=== PATIENT | female | born 1930 | race Caucasian/White ===

== ENCOUNTER 2016-09-10 11:16 | Emergency (ER) | payer OTHER, BC ==
--- NOTE | 2016-09-10 13:03 | DIAGNOSTIC IMAGING REPORT ---
PROCEDURE: XR ABDOMEN 1 VIEW UPRIGHT INDICATION: ABDOMINAL PAIN TECHNIQUE: AP upright view. COMPARISON: None. FINDINGS: Marked levoscoliosis and degenerative changes of the lumbar spine. Bowel pattern is normal. No evidence of free air. Soft tissues soft tissues are normal. IMPRESSION: 1. Marked levoscoliosis and degenerative changes of the lumbar spine. 2. Otherwise negative abdomen.
--- NOTE | 2016-09-10 15:44 | ED ORDER SUMMARY ---
..... Patient: GUILLE ESQUEDA OrderSheet [facility] VisitID: [id number] [address] [place] [address] 86y, F Registration Date/Time: 09/10/2016 ORDER SHEET Weight: 57.6 kg Allergies: Penicillins, Sulfa Antibiotics, GENERAL ORDERS: Abdomen 1V Upright Urgent (12:22 09/10/2016 Allyson FAIRBANKS) (Ack 12:23 Hilda) (12:55 Gregory) - (enemas until clear.) (13:09 09/10/2016 Allyson FAIRBANKS) (13:15 Mehdi Martínez.N.) UA-Culture if indicated Urgent (13:52 09/10/2016 Mehdi Martínez.Jb verbal order read back to Allyson FAIRBANKS) (13:52 Mehdi Martínez.N.) MEDICATION ORDERS: IV FLUIDS: ORDER SHEET NOTES: [Electronically signed by Brennan Dorsey MD (16:32 09/10/2016)] [Electronically signed by Pepe Raya R.N. (03:32 09/12/2016)] [Electronically locked/signed by Pepe Raya R.N. (03:32 09/12/2016)]
--- NOTE | 2016-09-10 15:44 | ED CLINICAL REPORT ---
Clinical Report - Physicians/Mid Levels [facility] [address] [place] [address] 09/10/2016 11:23 Patient: GUILLE ESQUEDA Time Seen: 12:04 Sep 10 2016. Arrived- By private vehicle. Historian- patient. CPT: ER phys charges level 4 (#[id number]). HISTORY OF PRESENT ILLNESS Chief Complaint: ABDOMINAL PAIN. At its maximum, severity described as moderate. When seen in the E.D., severity described as mild. Modifying factors- worsened by movement and food. Not relieved by anything. This started about 5 days [employer]; Historian: patient. Accompanied by spouse. Primary physician (Jhon). ( Abdominal Cramping, which pt attributes to possible constipation.). Onset. (about 5). She has had abdominal pain. and is still present. It is described as cramping and it is described as located in the periumbilical area. No nausea or vomiting. She has had loss of appetite and mild diarrhea. Similar symptoms previously: Diagnosis: constipation. Recent medical care: The patient was seen recently in the office (yesterday). Evaluation/treatment- go home and do fleets enemas. Diagnosis: constipation. REVIEW OF SYSTEMS The patient has had constipation. No black stools, hematemesis, difficulty with urination, pain with urination or urinary frequency. No fever, sore throat, chest pain, difficulty breathing or cough. No joint pain, skin rash, chills or back pain. All systems otherwise negative, except as recorded above. PAST HISTORY Hypertension. tremor. SOCIAL HISTORY Former smoker, end date 1966. No alcohol use or drug use. ADDITIONAL NOTES The nursing notes have been reviewed. PHYSICAL EXAM Vital Signs: 09/10/2016 11:39 BP: 141/92. HR: 93. RR: 16. O2 saturation: 97%. Temp: 97.6 F. Pain level now: 0/10. Appearance: Alert. Patient in mild distress. Eyes: Eyes normal inspection. ENT: Pharynx normal. CVS: Normal heart rate and rhythm. Respiratory: No respiratory distress. Abdomen: Soft. Mild tenderness in the periumbilical area. Abnormal bowel sounds: diminished. Skin: Skin warm. Normal skin color. Neuro: Oriented X 3. LABS, X-RAYS, AND EKG KUB: (moderate stool.). Views: erect AP. Technique: good. The X-rays were independently viewed by me and interpreted contemporaneously by me. Prior films were not available for comparison. Laboratory Tests: UA-Culture if indicated: (AYZMIN: 09/10/2016 13:30) ( MsgRcvd 09/10/2016 14:25) Final results Test Result Flag Units (Reference) URINE COLOR YELLOW URINE APPEARANCE HAZY URINE GLUCOSE NEGATIVE (NEGATIVE) URINE BILIRUBIN NEGATIVE (NEGATIVE) URINE KETONE NEGATIVE (NEGATIVE) URINE SPECIFIC GRAVITY <= 1.005 L (1.010-1.030) URINE PH 6.0 (5.0-8.0) URINE PROTEIN NEGATIVE (NEGATIVE) URINE UROBILINOGEN 0.2 EU/dL (0.2-1.0) URINE NITRITE NEGATIVE (NEGATIVE) URINE BLOOD NEGATIVE (NEGATIVE) URINE LEUK ESTERASE POSITIVE (NEGATIVE) URINE RBC NONE SEEN rbc/hpf (0-1) URINE WBC 1-3 wbc/hpf (0-1) URINE EPITHELIAL CELLS 5-10 EPI/hpf (0-5) URINE BACTERIA NONE SEEN (NONE SEEN) URINE COMMENT CULTURE INDICATED FEW TRANSITIONAL EPITHELIAL CELLSURINE CULTURES ARE SET-UP BASED ON THE FOLLOWING CRITERIA:POSITIVE NITRITEPOSITIVE LEUKOCYTE ESTERASEGREATER THAN 10 WHITE BLOOD CELLSMODERATE (2+) OR GREATER BACTERIA . PROGRESS AND PROCEDURES Course of Care: Good results from enemas. Patient is stable. Symptoms better. Patient/family counseled. Disposition: Discharged. Condition: stable. CLINICAL IMPRESSION Obstipation. INSTRUCTIONS Drink plenty of fluids. (drink one bottle of magnesium citrate at home.). Warnings: Further evaluation is necessary. GENERAL WARNINGS: Return or contact your physician immediately if your condition worsens or changes unexpectedly, if not improving as expected, or if other problems arise. Your Current Medications: CONTINUE TAKING THE FOLLOWING MEDICATIONS: Calcium + D Oral. Lisinopril Oral : 20 mg daily. Neurontin Oral : 300 mg daily. Omeprazole Oral : 20 mg daily. Tylenol Oral : 250 mg daily. Valium Oral : 5 mg daily. Follow-up: Follow up with your doctor in one week. Call for an appointment. Understanding of the discharge instructions verbalized by patient and family. Discharge instructions reviewed with and understanding was verbalized by spouse. (Electronically signed by Brennan Dorsey MD 09/10/2016 16:32)
--- NOTE | 2016-09-10 15:44 | ED NURSING NOTES ---
Clinical Report - Nurses [facility] [address] [place] [address] 09/10/2016 11:23 [id number] Triage time 11:35 Sep 10 2016. Acuity: LEVEL 3. Chief Complaint: ABDOMINAL PAIN. Alert. TELMA COMA SCORE: [place] Coma Scale: 15- eyes open spontaneously (4); best verbal response- oriented x 4 (5); best motor response- obeys commands (6). --11:55 Pepe Erickson R.N. 11:39 09/10/16. BP: 141/92. HR: 93 (regular). RR: 16. O2 saturation: 97% on room air. Temp: 97.6 F. Pain level now: 0/10. --11:55 Pepe Erickson R.N. Weight: 57.6 kg. Height/Length: 59 inches Per Patient. BMI: 25.7. --11:41 Pepe Erickson R.N. Medications Lisinopril Oral 20 mg, daily. Valium Oral 5 mg, daily. --11:47 Pepe Erickson R.N. Omeprazole Oral 20 mg, daily. --11:47 Pepe Erickson R.N. Neurontin Oral 300 mg, daily. --11:48 Pepe Erickson R.N. Tylenol Oral 250 mg, daily. --11:49 Pepe Erickson R.N. Calcium + D Oral. --11:49 Pepe Erickson R.N. Medication/allergy information source: the patient. --11:55 Pepe Erickson R.N. Allergies Penicillins. Definite Moderate(rash) Sulfa Antibiotics. Definite Moderate (Uncertain--50 years ago) --11:47 Pepe Erickson R.N. The following entry was struck and corrected by Pepe Erickson R.N., 11:51 (09/10/16) Reason for correction - other(correction). <<STRICKEN ENTRY-- Sulfa Antibiotics. --11:47 Pepe Erickson R.N. --END STRIKE>> The following entry was struck and corrected by Pepe Erickson R.N., 11:50 (09/10/16) Reason for correction - other(correction). <<STRICKEN ENTRY-- Penicillins. --11:47 Pepe Erickson R.N. --END STRIKE>>. History Arrived by private vehicle. Historian: patient. Accompanied by spouse. Primary physician (Jhon). ( Abdominal Cramping, which pt attributes to possible constipation.). Onset. (about 5). She has had abdominal pain. 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 PAST MEDICAL HX: Immunizations: up-to-date. SURGERY HX: No history of previous surgery. SOCIAL HX: Former smoker, end date 1939. No alcohol use or drug use. No recent travel. No infectious disease exposure. No known contact with a sick individual. ABUSE ASSESSMENT: No report of abuse. FALL RISK ASSESSMENT: Fall risk assessment completed. No fall risk identified. NUTRITIONAL RISK ASSESSMENT: The nutritional risk assessment revealed no deficiencies. FUNCTIONAL ASSESSMENT: Functional assessment: no impairments noted. LEARNING NEEDS ASSESSMENT: The learning needs assessment revealed no barriers. SKIN INTEGRITY ASSESSMENT: Skin integrity risk assessment completed. No skin integrity risk identified. --11:55 Pepe Erickson R.N. Interventions ID band on patient. To treatment room. --11:55 Pepe Erickson R.N. PHYSICAL ASSESSMENT Ambulatory to room. GENERAL / NEURO / PSYCH: Alert. Oriented X 4. HEENT: Mucous membranes are pink. RESPIRATORY: Respirations not labored. Breath sounds within normal limits. CVS: Normal sinus rhythm noted. GI / : Abdomen soft. Abdominal tenderness. Bowel sounds within normal limits. SKIN: Skin is warm and dry. --11:56 Pepe Erickson R.N. NURSING PROGRESS NOTES Patient gowned. Reassurance given. Call light placed in reach. Side rails up x 2. Bed placed in lowest position. Brakes of bed on. Patient ready for evaluation- chart flagged and ED physician notified. --11:56 Pepe Erickson R.N. 13:45 09/10/16. Patient ID band checked for patient name, birthdate and medical record number: patient confirmed. Instructions provided to collect clean catch urine and patient verbalized understanding. Clean catch urine collected with return of yellow-colored clear urine; odor is normal; sample sent to lab for urinalysis and culture. Specimen labeled in the presence of the patient. --13:52 Pepe Erickson R.N. 13:50 09/10/16. ( Fleets Mineral Oil Enema given to pt.). --13:53 Pepe Erickson R.N. 14:05. ( Fleets Saline Enema given to pt). --15:45 Pepe Erickson R.N. 14:50. ( Pt up to [facility] passing stool/stool fragments.). --15:46 Pepe Erickson R.N. 15:10. ( Murj-[id number]-Aochxnfu Enema). --15:48 Pepe Erickson R.N. DISPOSITION / DISCHARGE Departure time: 16:00 Sep 10 2016. Condition at departure: improved. No learning barriers present. Discharge instructions provided and reviewed with the patient. Reviewed warnings. Reviewed medication(s). Treatments reviewed. Reviewed referrals. Patient and spouse verbalized understanding. Written instructions provided in Chinese. The patient was discharged home and accompanied by spouse. She left the Emergency Department ambulatory and via private vehicle. Spouse driving. --16:00 Veena Brown R.N. 15:58 09/10/16. BP: 102/73. HR: 94. RR: 18. O2 saturation: 100%. Temp: 98.6 F. Pain level now 2/10. --16:00 Veena Brown R.N. Locked/Released at 09/12/2016 3:32 by Pepe Raya R.N.
--- NOTE | 2016-09-10 15:44 | ED ORDER SUMMARY ---
..... Patient: GUILLE ESQUEDA OrderSheet [facility] VisitID: [id number] [address] [place] [address] 86y, F Registration Date/Time: 09/10/2016 ORDER SHEET Weight: 57.6 kg Allergies: Penicillins, Sulfa Antibiotics, GENERAL ORDERS: Abdomen 1V Upright Urgent (12:22 09/10/2016 Allyson FAIRBANKS) (Ack 12:23 Hilda) (12:55 Gregory) - (enemas until clear.) (13:09 09/10/2016 Allyson FAIRBANKS) (13:15 Mehdi Martínez.N.) UA-Culture if indicated Urgent (13:52 09/10/2016 Mehdi Martínez.Jb verbal order read back to Allyson FAIRBANKS) (13:52 Mehdi Martínez.N.) MEDICATION ORDERS: IV FLUIDS: ORDER SHEET NOTES: [Electronically signed by Brennan Dorsey MD (16:32 09/10/2016)] [Electronically signed by Pepe Raya R.N. (03:32 09/12/2016)] [Electronically locked/signed by Pepe Raya R.N. (03:32 09/12/2016)]
--- NOTE | 2016-09-10 15:44 | ED CLINICAL REPORT ---
Clinical Report - Physicians/Mid Levels [facility] [address] [place] [address] 09/10/2016 11:23 Patient: GUILLE ESQUEDA Time Seen: 12:04 Sep 10 2016. Arrived- By private vehicle. Historian- patient. CPT: ER phys charges level 4 (#[id number]). HISTORY OF PRESENT ILLNESS Chief Complaint: ABDOMINAL PAIN. At its maximum, severity described as moderate. When seen in the E.D., severity described as mild. Modifying factors- worsened by movement and food. Not relieved by anything. This started about 5 days [employer]; Historian: patient. Accompanied by spouse. Primary physician (Jhon). ( Abdominal Cramping, which pt attributes to possible constipation.). Onset. (about 5). She has had abdominal pain. and is still present. It is described as cramping and it is described as located in the periumbilical area. No nausea or vomiting. She has had loss of appetite and mild diarrhea. Similar symptoms previously: Diagnosis: constipation. Recent medical care: The patient was seen recently in the office (yesterday). Evaluation/treatment- go home and do fleets enemas. Diagnosis: constipation. REVIEW OF SYSTEMS The patient has had constipation. No black stools, hematemesis, difficulty with urination, pain with urination or urinary frequency. No fever, sore throat, chest pain, difficulty breathing or cough. No joint pain, skin rash, chills or back pain. All systems otherwise negative, except as recorded above. PAST HISTORY Hypertension. tremor. SOCIAL HISTORY Former smoker, end date 1966. No alcohol use or drug use. ADDITIONAL NOTES The nursing notes have been reviewed. PHYSICAL EXAM Vital Signs: 09/10/2016 11:39 BP: 141/92. HR: 93. RR: 16. O2 saturation: 97%. Temp: 97.6 F. Pain level now: 0/10. Appearance: Alert. Patient in mild distress. Eyes: Eyes normal inspection. ENT: Pharynx normal. CVS: Normal heart rate and rhythm. Respiratory: No respiratory distress. Abdomen: Soft. Mild tenderness in the periumbilical area. Abnormal bowel sounds: diminished. Skin: Skin warm. Normal skin color. Neuro: Oriented X 3. LABS, X-RAYS, AND EKG KUB: (moderate stool.). Views: erect AP. Technique: good. The X-rays were independently viewed by me and interpreted contemporaneously by me. Prior films were not available for comparison. Laboratory Tests: UA-Culture if indicated: (YAZMIN: 09/10/2016 13:30) ( MsgRcvd 09/10/2016 14:25) Final results Test Result Flag Units (Reference) URINE COLOR YELLOW URINE APPEARANCE HAZY URINE GLUCOSE NEGATIVE (NEGATIVE) URINE BILIRUBIN NEGATIVE (NEGATIVE) URINE KETONE NEGATIVE (NEGATIVE) URINE SPECIFIC GRAVITY <= 1.005 L (1.010-1.030) URINE PH 6.0 (5.0-8.0) URINE PROTEIN NEGATIVE (NEGATIVE) URINE UROBILINOGEN 0.2 EU/dL (0.2-1.0) URINE NITRITE NEGATIVE (NEGATIVE) URINE BLOOD NEGATIVE (NEGATIVE) URINE LEUK ESTERASE POSITIVE (NEGATIVE) URINE RBC NONE SEEN rbc/hpf (0-1) URINE WBC 1-3 wbc/hpf (0-1) URINE EPITHELIAL CELLS 5-10 EPI/hpf (0-5) URINE BACTERIA NONE SEEN (NONE SEEN) URINE COMMENT CULTURE INDICATED FEW TRANSITIONAL EPITHELIAL CELLSURINE CULTURES ARE SET-UP BASED ON THE FOLLOWING CRITERIA:POSITIVE NITRITEPOSITIVE LEUKOCYTE ESTERASEGREATER THAN 10 WHITE BLOOD CELLSMODERATE (2+) OR GREATER BACTERIA . PROGRESS AND PROCEDURES Course of Care: Good results from enemas. Patient is stable. Symptoms better. Patient/family counseled. Disposition: Discharged. Condition: stable. CLINICAL IMPRESSION Obstipation. INSTRUCTIONS Drink plenty of fluids. (drink one bottle of magnesium citrate at home.). Warnings: Further evaluation is necessary. GENERAL WARNINGS: Return or contact your physician immediately if your condition worsens or changes unexpectedly, if not improving as expected, or if other problems arise. Your Current Medications: CONTINUE TAKING THE FOLLOWING MEDICATIONS: Calcium + D Oral. Lisinopril Oral : 20 mg daily. Neurontin Oral : 300 mg daily. Omeprazole Oral : 20 mg daily. Tylenol Oral : 250 mg daily. Valium Oral : 5 mg daily. Follow-up: Follow up with your doctor in one week. Call for an appointment. Understanding of the discharge instructions verbalized by patient and family. Discharge instructions reviewed with and understanding was verbalized by spouse. (Electronically signed by Brennan Dorsey MD 09/10/2016 16:32)
--- NOTE | 2016-09-10 15:44 | ED NURSING NOTES ---
Clinical Report - Nurses [facility] [address] [place] [address] 09/10/2016 11:23 [id number] Triage time 11:35 Sep 10 2016. Acuity: LEVEL 3. Chief Complaint: ABDOMINAL PAIN. Alert. TELMA COMA SCORE: [place] Coma Scale: 15- eyes open spontaneously (4); best verbal response- oriented x 4 (5); best motor response- obeys commands (6). --11:55 Pepe Erickson R.N. 11:39 09/10/16. BP: 141/92. HR: 93 (regular). RR: 16. O2 saturation: 97% on room air. Temp: 97.6 F. Pain level now: 0/10. --11:55 Pepe Erickson R.N. Weight: 57.6 kg. Height/Length: 59 inches Per Patient. BMI: 25.7. --11:41 Pepe Erickson R.N. Medications Lisinopril Oral 20 mg, daily. Valium Oral 5 mg, daily. --11:47 Pepe Erickson R.N. Omeprazole Oral 20 mg, daily. --11:47 Pepe Erickson R.N. Neurontin Oral 300 mg, daily. --11:48 Pepe Erickson R.N. Tylenol Oral 250 mg, daily. --11:49 Pepe Erickson R.N. Calcium + D Oral. --11:49 Pepe Erickson R.N. Medication/allergy information source: the patient. --11:55 Pepe Erickson R.N. Allergies Penicillins. Definite Moderate(rash) Sulfa Antibiotics. Definite Moderate (Uncertain--50 years ago) --11:47 Pepe Erickson R.N. The following entry was struck and corrected by ePpe Erickson R.N., 11:51 (09/10/16) Reason for correction - other(correction). <<STRICKEN ENTRY-- Sulfa Antibiotics. --11:47 Pepe Erickson R.N. --END STRIKE>> The following entry was struck and corrected by Pepe Erickson R.N., 11:50 (09/10/16) Reason for correction - other(correction). <<STRICKEN ENTRY-- Penicillins. --11:47 Pepe Eirckson R.N. --END STRIKE>>. History Arrived by private vehicle. Historian: patient. Accompanied by spouse. Primary physician (Jhon). ( Abdominal Cramping, which pt attributes to possible constipation.). Onset. (about 5). She has had abdominal pain. 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 PAST MEDICAL HX: Immunizations: up-to-date. SURGERY HX: No history of previous surgery. SOCIAL HX: Former smoker, end date 1939. No alcohol use or drug use. No recent travel. No infectious disease exposure. No known contact with a sick individual. ABUSE ASSESSMENT: No report of abuse. FALL RISK ASSESSMENT: Fall risk assessment completed. No fall risk identified. NUTRITIONAL RISK ASSESSMENT: The nutritional risk assessment revealed no deficiencies. FUNCTIONAL ASSESSMENT: Functional assessment: no impairments noted. LEARNING NEEDS ASSESSMENT: The learning needs assessment revealed no barriers. SKIN INTEGRITY ASSESSMENT: Skin integrity risk assessment completed. No skin integrity risk identified. --11:55 Pepe Erickson R.N. Interventions ID band on patient. To treatment room. --11:55 Pepe Erickson R.N. PHYSICAL ASSESSMENT Ambulatory to room. GENERAL / NEURO / PSYCH: Alert. Oriented X 4. HEENT: Mucous membranes are pink. RESPIRATORY: Respirations not labored. Breath sounds within normal limits. CVS: Normal sinus rhythm noted. GI / : Abdomen soft. Abdominal tenderness. Bowel sounds within normal limits. SKIN: Skin is warm and dry. --11:56 Pepe Erickson R.N. NURSING PROGRESS NOTES Patient gowned. Reassurance given. Call light placed in reach. Side rails up x 2. Bed placed in lowest position. Brakes of bed on. Patient ready for evaluation- chart flagged and ED physician notified. --11:56 Pepe Erickson R.N. 13:45 09/10/16. Patient ID band checked for patient name, birthdate and medical record number: patient confirmed. Instructions provided to collect clean catch urine and patient verbalized understanding. Clean catch urine collected with return of yellow-colored clear urine; odor is normal; sample sent to lab for urinalysis and culture. Specimen labeled in the presence of the patient. --13:52 Pepe Erickson R.N. 13:50 09/10/16. ( Fleets Mineral Oil Enema given to pt.). --13:53 Pepe Erickson R.N. 14:05. ( Fleets Saline Enema given to pt). --15:45 Pepe Erickson R.N. 14:50. ( Pt up to [facility] passing stool/stool fragments.). --15:46 Pepe Erickson R.N. 15:10. ( Tqrh-bou-Ymjipvww Enema). --15:48 Pepe Erickson R.N. DISPOSITION / DISCHARGE Departure time: 16:00 Sep 10 2016. Condition at departure: improved. No learning barriers present. Discharge instructions provided and reviewed with the patient. Reviewed warnings. Reviewed medication(s). Treatments reviewed. Reviewed referrals. Patient and spouse verbalized understanding. Written instructions provided in [place]. The patient was discharged home and accompanied by spouse. She left the Emergency Department ambulatory and via private vehicle. Spouse driving. --16:00 Veena Brown R.N. 15:58 09/10/16. BP: 102/73. HR: 94. RR: 18. O2 saturation: 100%. Temp: 98.6 F. Pain level now 2/10. --16:00 Veena Brown R.N. Locked/Released at 09/12/2016 3:32 by Pepe Raya R.N.
--- NOTE | 2016-09-12 03:32 | ED MED RECONCILIATION SUMMARY ---
Patient: GUILLE ESQUEDA Medication Reconciliation Report [facility] VisitID: [id number] [address] [place] [address] 86y, F Registration Date/Time: 09/10/2016 Weight: 57.6 kg Height/Length: 59 in. BMI: 25.7 ALLERGIES: Penicillins, Sulfa Antibiotics The patient's Home Medications are listed below: CONTINUE TAKING THE FOLLOWING MEDICATIONS: Calcium + D Oral Lisinopril Oral 20 mg, daily Neurontin Oral 300 mg, daily Omeprazole Oral 20 mg, daily Tylenol Oral 250 mg, daily Valium Oral 5 mg, daily The source(s) of the original Home Medication information: patient The following Medications were given to the patient in the Emergency Department: None. The following Medications were prescribed to the patient: None.
--- NOTE | 2016-09-12 03:32 | ED DISCHARGE INSTRUCTIONS ---
Patient: GUILLE ESQUEDA General Instructions [facility] VisitID: [id number] [address] [place] [address] 86y, F Registration Date/Time: 09/10/2016 Obstipation. INSTRUCTIONS Drink plenty of fluids. (drink one bottle of magnesium citrate at home.). Warnings: Further evaluation is necessary. GENERAL WARNINGS: Return or contact your physician immediately if your condition worsens or changes unexpectedly, if not improving as expected, or if other problems arise. Your Current Medications: CONTINUE TAKING THE FOLLOWING MEDICATIONS: Calcium + D Oral. Lisinopril Oral : 20 mg daily. Neurontin Oral : 300 mg daily. Omeprazole Oral : 20 mg daily. Tylenol Oral : 250 mg daily. Valium Oral : 5 mg daily. Follow-up: Follow up with your doctor in one week. Call for an appointment. Understanding of the discharge instructions verbalized by patient and family. Discharge instructions reviewed with and understanding was verbalized by spouse. (Electronically signed by Brennan Dorsey MD 09/10/2016 16:32)
--- NOTE | 2016-09-12 03:32 | ED MAR SUMMARY ---
..... Medication Administration Record [address], [place] [id number] Patient: GUILLE ESQUEDA Visit ID: [id number] 86y, F Weight: 57.6 kg Height/Length: 59 in BMI: 25.7 ALLERGIES: Sulfa Antibiotics, Penicillins
--- NOTE | 2016-09-12 03:32 | ED MED RECONCILIATION SUMMARY ---
Patient: GUILLE ESQUEDA Medication Reconciliation Report [facility] VisitID: [id number] [address] [place] [address] 86y, F Registration Date/Time: 09/10/2016 Weight: 57.6 kg Height/Length: 59 in. BMI: 25.7 ALLERGIES: Penicillins, Sulfa Antibiotics The patient's Home Medications are listed below: CONTINUE TAKING THE FOLLOWING MEDICATIONS: Calcium + D Oral Lisinopril Oral 20 mg, daily Neurontin Oral 300 mg, daily Omeprazole Oral 20 mg, daily Tylenol Oral 250 mg, daily Valium Oral 5 mg, daily The source(s) of the original Home Medication information: patient The following Medications were given to the patient in the Emergency Department: None. The following Medications were prescribed to the patient: None.
--- NOTE | 2016-09-12 03:32 | ED DISCHARGE INSTRUCTIONS ---
Patient: GUILLE ESQUEDA General Instructions [facility] VisitID: [id number] [address] [place] [address] 86y, F Registration Date/Time: 09/10/2016 Obstipation. INSTRUCTIONS Drink plenty of fluids. (drink one bottle of magnesium citrate at home.). Warnings: Further evaluation is necessary. GENERAL WARNINGS: Return or contact your physician immediately if your condition worsens or changes unexpectedly, if not improving as expected, or if other problems arise. Your Current Medications: CONTINUE TAKING THE FOLLOWING MEDICATIONS: Calcium + D Oral. Lisinopril Oral : 20 mg daily. Neurontin Oral : 300 mg daily. Omeprazole Oral : 20 mg daily. Tylenol Oral : 250 mg daily. Valium Oral : 5 mg daily. Follow-up: Follow up with your doctor in one week. Call for an appointment. Understanding of the discharge instructions verbalized by patient and family. Discharge instructions reviewed with and understanding was verbalized by spouse. (Electronically signed by Brennan Dorsey MD 09/10/2016 16:32)
--- NOTE | 2016-09-12 03:32 | ED MAR SUMMARY ---
..... Medication Administration Record [facility] [address] [place], [place] [id number] Patient: GUILLE ESQUEDA Visit ID: [id number] 86y, F Weight: 57.6 kg Height/Length: 59 in BMI: 25.7 ALLERGIES: Sulfa Antibiotics, Penicillins
== END 2016-09-10 16:00 | disposition home or self-care (01) ==
LOC: ED SRH 11:16
DX: K59.00 Constipation, unspecified (principal); I10 Essential (primary) hypertension
CPT/HCPCS: 90004; 90469